=== PATIENT | male | born 2000 | race Caucasian/White ===

== ENCOUNTER 2024-06-09 12:44 | Emergency (ER) | payer SELFPAY ==
[2024-06-09 12:46] VITALS: BP 92/53; PULSE 80; RESP 16; TEMP 36.5; O2SAT 100; BMI 19.3
[2024-06-09 12:50] VITALS: BP 107/65; PULSE 64; O2SAT 98
--- NOTE | 2024-06-09 12:52 | PC.NURSE ---
pt has refused imaging of his RUE or attempts to remove the foreign body.
--- NOTE | 2024-06-09 13:02 | HMH.ITSTN ---
pt refused xray
[2024-06-09] MEDS: SULFA/TRIMETHOPRIM 1 TABLET 1 EACH PO (13:07)
--- NOTE | 2024-06-09 13:08 | ED_ITS ---
Discharge Plan Disposition Patient Disposition: Home, Self-Care Condition: Good Prescriptions Prescriptions: New sulfamethoxazole-trimethoprim [Bactrim DS] 800-160 mg tablet 1 tab PO BID 14 Days Qty: 28 0RF ondansetron HCl 4 mg tablet 4 mg PO Q8H PRN (Reason: nausea and vomiting) 4 Days Qty: 12 0RF loperamide [Anti-Diarrheal (loperamide)] 2 mg capsule 2 mg PO Q6H PRN (Reason: loose stool) Qty: 14 0RF dicyclomine 20 mg tablet 20 mg PO QID PRN (Reason: abdominal pain) Qty: 20 0RF Referrals Follow up/Referrals: Pj Hart DO [Staff Physician] - See instructions Nirav Valdivia DO [Staff Physician] - See instructions Provider,MD Spring [Primary Care Provider] - See instructions Kirill Friend MD [Staff Physician] - See instructions Activity Restrictions/Add. Instructions Additional Instructions/Restrictions: You were evaluated in the emergency department today. At this time, we recommended imaging to evaluate for foreign body, however since you declined we are prescribing you antibiotics to help prevent infection. Foreign bodies can be sources of recurrent infection when left in the body. I recommend close follow-up for monitoring with your primary care provider. We have provided you with information for several different primary care providers in the area. If you choose to see one of them, please call their office to schedule an appointment. In the meantime, I am prescribing you Bactrim (sulfamethoxazole- trimethoprim) to help treat skin and soft tissue infections. Please pick it up and complete the full course as prescribed. Please refrain from drug use. Since you mentioned detoxing at home with medications to treat gastrointestinal symptoms, I did prescribe you Zofran, loperamide, and dicyclomine. You may also take Tylenol and ibuprofen at home every 4-6 hours as needed to help with pain and cramps. If you wish to seek professional help, I have provided information below for Jr. Return to the emergency department right away for new or worsening symptoms. [address] [id number] Clinical Impressions Clinical Impression: Active intravenous drug use, Needle stick injury of upper extremity, Retained foreign body of upper extremity Instructions Patient Instructions: DI for Removal of Foreign Body From Skin, DI for Substance Use Disorder, Drug and Alcohol Withdrawal Discharge ED Provider: Chasity Car General Adult HPI General Chief complaint: Extremity Problem,Nontraumatic Stated complaint: right needles broken off in right arm Time Seen by Provider: 06/09/24 12:56 Mode of Arrival: Ambulatory Source of Information: Patient Limitations: No Limitations Description of Symptoms (Recalled from ER Triage Doc. by RN): 2x needle tips in RAC. History of Present Illness HPI narrative: This patient is a 23-year-old male with a history of IV substance use presenting to the emergency department for evaluation with concern for possible retained needles in his right arm. He states that he was using insulin needles to inject fentanyl 2 days ago when he had 2 different needles break off in his right AC. He notes he tried to get 1 out but was unable to and now has a wound in his right AC. He denies any other concerns or complaint such as fevers, chills, chest pain, shortness of breath, or other concerns. He states that he is not interested in seeking help professionally for detox at this time but would appreciate nausea medication to go home with to help him detox at home. Related Data Previous Rx's ?Medication ?Instructions ?Recorded dicyclomine 20 mg tablet 20 mg PO QID PRN abdominal pain 06/09/24 #20 tabs loperamide 2 mg capsule 2 mg PO Q6H PRN loose stool #14 06/09/24 (Anti-Diarrheal (loperamide)) caps ondansetron HCl 4 mg tablet 4 mg PO Q8H PRN nausea and 06/09/24 vomiting 4 days #12 tabs sulfamethoxazole 800 1 tab PO BID 14 days #28 tabs 06/09/24 mg-trimethoprim 160 mg tablet (Bactrim DS) Allergies Allergy/AdvReac Type Severity Reaction Status Date / Time No Known Allergies Allergy Verified 06/09/24 13:04 [facility] Disclaimer: The information contained in this section may have been updated after the patient was seen, as this information can be updated by other users. Social History Smoking Status: Current every day smoker alcohol intake: never current occupational status: employed Travel in the last 8 weeks: None ROS Obtained: Yes All systems reviewed & no additional complaints except as documented Physical Exam General General appearance: alert and in no apparent distress Head Head exam: atraumatic and normocephalic Eye Eye exam: Present normal appearance, PERRL and EOMI ENT ENT exam: Present normal exam, normal oropharynx, mucous membranes moist and normal external ear exam Neck Neck exam: Present normal inspection, full ROM and trachea midline; Absent tenderness Chest Chest inspection: Present normal inspection and symmetric chest wall rise; Absent tenderness Respiratory Respiratory exam: Present normal lung sounds bilaterally; Absent respiratory distress, wheezes, stridor or accessory muscle use Cardiovascular Cardiovascular exam: Present regular rate and normal rhythm Abdominal Exam Abdominal exam: Present soft; Absent distention, tenderness or guarding Extremities Exam Extremities exam: Present full ROM and normal capillary refill; Absent tenderness or edema Expanded Upper Extremity Exam Right: L/R Arms Bottom View: 2 1. Very small wound with scab with no significant surrounding erythema, warmth, or purulence. No red streaking up the arm. Neurovascularly intact distally. Back Exam Back exam: Present normal inspection and full ROM; Absent tenderness Neurological Exam Neurological exam: Present alert, oriented X3, CN II-XII intact and normal gait; Absent motor sensory deficit Psychiatric Psychiatric exam: Present normal affect and normal mood Skin Skin exam: Present warm and dry Medical Decision Making Medical Records Medical records reviewed: Yes I reviewed the patient's medical records. Screening: Per USPSTF and CDC recommendations, given the prevalence of disease in our region, it is our hospital?s policy to screen for HIV and viral Hepatitis for all patients aged 18 and over and those with ongoing risk factors. Jj Inquiry Pt receiving controlled substance: No Vital Signs: 06/09/24 12:46 06/09/24 12:50 Temperature 97.7 F Temperature Source Oral Pulse Rate 64 Pulse Rate [Right] 80 Respiratory Rate 16 Blood Pressure 107/65 L Blood Pressure [Right Arm] 92/53 L Blood Pressure Mean [Right Arm] 66 02 Sat by Pulse Oximetry 100 98 Lab Data Lab results reviewed: Yes I reviewed the patient's lab results. Orders (Tests/Meds): ED MEDICATIONS Discontinued Medications Generic Name Dose Route Start Last Admin Trade Name Freq PRN Reason Stop Dose Admin Trimethoprim/Sulfamethoxazole 1 each 06/09/24 12:56 06/09/24 13:07 Sulfa/Trimethoprim 1 Tablet PO 06/09/24 12:57 1 each ONCE ONE Administration Medical Decision Narrative: In summary, this patient is a 23-year-old male presenting to the Emergency Department for evaluation of retained needles in his right arm. Differential diagnoses considered include but are not limited to retained needles, cellulitis, abscess. Ruling out the most morbid conditions drove assessment. It should be noted patient's history includes IV drug use which is not at goal therapy. This complicates all aspects of care by increasing patient's risk for morbidity. On exam, the patient is lying in bed in no acute distress. He is alert, oriented, pleasant, and conversational. He is not interested in help with fentanyl detox at this time order outpatient referral. He is agreeable to medication to treat GI upset should he try and detox at home. I have provided him with prescriptions for Zofran, Bentyl, and loperamide. Ultimately I explained to him that retained foreign body is high risk for potential recurrent infection, as it serves as a source for bacteria. He stated he understands. I offered to obtain x-ray as well as ultrasound to look for the foreign body, but he declines. He states he would take an antibiotic to help prevent infection but otherwise does not want any therapy or intervention at this time. I did prescribe him Bactrim and given first dose here. Ultimately, I feel that he is appropriate for discharge home via patient directed discharge given that he does not want other treatment or intervention at this time. He was given prescriptions for Bactrim, Zofran, loperamide, and Bentyl as well as instructions for close outpatient follow-up. I did give him information for primary care providers as well as information for Jr should he change his mind. He was discharged with strict return precautions. Critical Care Critical Care Time Critical Care Time: No
[2024-06-09 13:26] VITALS: BP 107/65; PULSE 61; RESP 16; TEMP 36.6
== END 2024-06-09 13:31 | disposition home or self-care (01) ==
LOC: ER 13:20
PROVIDERS: Emergency Provider Emergency Medicine
DX: M79.5 Residual foreign body in soft tissue (principal); F19.90 Other psychoactive substance use, unspecified, uncomplicated; M79.601 Pain in right arm
CPT/HCPCS: 99282